=== PATIENT | female | born 1955 | race Two or more races ===

== ENCOUNTER → 2024-06-04 | Outpatient (CLI) | payer OTHER, SELFPAY ==
--- NOTE | 2024-06-04 | XR_ITS ---
Examination: Knee bilateral, 7 views Technique: Knee AP, lateral, oblique each knee, bilateral AP knees single view total 7 views Date and time of exam: January 03, 2024 1425 hours INDICATIONS: Bilateral knee pain beginning 3 months ago. FINDINGS: Prominent osteopenia Right knee moderate narrowing medial joint space mild to moderate osteoarthritis patellofemoral joint Left knee moderate tricompartment osteoarthritis No fracture or dislocation involving either knee IMPRESSION: Moderate narrowing medial joint space right knee Left knee moderate tricompartment osteoarthritis
== END | disposition home or self-care (01) ==
LOC: CDIM 12:12
PROVIDERS: Referring Provider Internal Medicine; Visit Provider Internal Medicine
DX: M17.12 Unilateral primary osteoarthritis, left knee (principal); M25.861 Other specified joint disorders, right knee
CPT/HCPCS: 73564

== ENCOUNTER → 2024-06-28 | Outpatient (CLI) | payer OTHER, SELFPAY ==
[2024-06-28 08:48] LABS: Creatinine MALB Rnd Ur 152 mg/dL (30-125); Microalbumin Creat Ratio 3 mg/gCrea (<30); Microalbumin, Random Urine 4 mg/L (0-300)
[2024-06-28 08:49] LABS: Glucose Estimated Average 180 mg/dL (80-131); Hemoglobin A1C 7.9 % Hgb (4.8-6.0)
[2024-06-28 08:52] LABS: Anion Gap 8 (7-16); BUN/Creatinine Ratio 11 Ratio (12-20); Blood Urea Nitrogen 9 mg/dL (9-23); Calcium 10.1 mg/dL (8.3-10.6); Carbon Dioxide 29.8 mMol/L (20.0-31.0); Chloride 101 mMol/L (98-107); Creatinine (Component) 0.8 mg/dL (0.6-1.3); Glucose 220 mg/dL (74-106); Osmolality,Calculated 283 (275-295); Potassium 4.6 mMol/L (3.4-5.1); Sodium 139 mMol/L (136-145); eGFR > 60 See Note
== END | disposition home or self-care (01) ==
LOC: COPL 07:35
PROVIDERS: PCP Family Medicine; Referring Provider Internal Medicine; Visit Provider Internal Medicine
DX: E11.65 Type 2 diabetes mellitus with hyperglycemia (principal); I10 Essential (primary) hypertension
CPT/HCPCS: 36415; 80048; 82043; 82570; 83036

== ENCOUNTER 2024-09-19 07:54 | Outpatient (AMB) | payer OTHER, SELFPAY ==
[2024-09-19 08:18] VITALS: BP 138/79; PULSE 85; RESP 19; TEMP 36.6; O2SAT 98; BMI 25.6
--- NOTE | 2024-09-19 08:18 | PD.ORTHCLVIS ---
Vital signs 09/19/24 08:18 Height 1.55 m Height Method Measured Weight 61.462 kg Weight Measurement Method Standing Scale BMI 25.6 BP 138/79 H Blood Pressure Source Automatic Cuff Blood Pressure Location Left Upper Arm Position Sitting Respiration 19 Pulse 85 Pulse Source Monitor Temp 97.9 F Temp Source Temporal Artery Scan Pulse Oximetry (%) 98 Oxygen Delivery Method Room Air Med/Allergies Allergies & Medications Allergies No Known Allergies Allergy (Verified 09/19/24 08:19) Medication Reconciliation glipizide 10 mg tablet 10 mg PO BID 08/01/19 [History Confirmed 09/19/24] metformin 1,000 mg tablet 1,000 mg PO BID 08/01/19 [History Confirmed 09/19/24] meloxicam 7.5 mg tablet 7.5 mg PO QDAY #45 tabs 09/19/24 [Rx] Exam Exam Patient is in no acute distress and is cooperative with the examination today. Breathing is nonlabored. Patient has a normal mood and affect. Bilateral extremities were evaluated and demonstrates sensation intact to light touch. Palpable pedal pulses are present. No significant edema is present. Bilateral hips were examined. The patient has no pain with log roll of the hips. Internal rotation to 30 degrees and external rotation to 30 degrees is painless. Negative FADIR. Right knee was examined today. The right knee is in reasonable alignment. Range of motion from 0-120 degrees. Knee is stable to varus and valgus as well as AP translation with <5mm. Patient has a negative McMurrays. There is no pain with patellofemoral compression and no crepitus noted. The knee is nontender to palpation. Left knee was examined today. The left knee is in varus alignment. Range of motion from 0-115 degrees. Knee is stable to varus and valgus as well as AP translation with <5mm. Patient has a negative McMurrays. There is no pain with patellofemoral compression and no crepitus noted. The knee is tender to palpation medially. Bilateral knee x-rays that are nonweightbearing demonstrate mild to moderate joint space narrowing and osteophytes Assessment and Plan Problem List (1) Arthritis of left knee: Status: Acute Plan: Patient is a pleasant 69-year-old female with left knee pain and left knee arthritis. We will get weightbearing x-rays. She would like a left knee cortisone injection today and we will start her on anti-inflammatories. Recommend knee cortisone injection as patient would like to proceed with conservative treatment at this time. The risks and benefits of the procedure were reviewed with the patient and patient gave verbal consent to continue with the procedure. Procedure: performed by Dr. Jefferson Using sterile technique the left knee was thoroughly prepped with alcohol, and approximately 1 cc of Kenalog 40 mg/mL and 4 cc of 1% lidocaine was injected without resistance into the medial tibial femoral joint space. The patient tolerated the procedure. Advanced Care Planning Discussion Advance care planning discussed with:: patient Office Procedures GNS Level of Care Nursing/Assessment Patient Status: Initial/New Patient Nursing Assessment/Reassesment: Medication Reconciliation, Update PMH in EMR and Vital Signs Coordination of Care: Complex Care and Chronic Disease 1-5, Consent,records obtained, informed consent, Education Simp Pt/Fam, 1 Ins Authorization, Lab and Imaging orders, Results/Orders obtained and Staff clarify orders Special Needs: Language special needs New Patient Charge New Patient Point Assignment: [id number] New Patient Point Charge: BULK COOLER INSTALLER Level 4 (5347-9412) Established Patient Charge Established Patient Point Charge: EP Level 3 (80-115) Surgical Proc/IM SQ injection Major Surgical Procedure: Yes (knee injections ) Medication Given Medication Given Medication Given: Yes Documented Dose Given: 4 Route: Infiitration Medication Given Medication Given Medication Given: Yes Documented Dose Given: 1 Route: Infiitration Office Meds Xylocaine 10 mg/mL (1 %) injection solution Performing Provider: Kevin Jefferson MD Performing Location: [facility] Administered by: Kevin Jefferson MD on 09/19/24 08:34 Dose Route Admin Location Dispensed Lot Number Expiration Date [facility] Printed Forms Proofreader 20 mL Infiltration 20 mL [id number] [facility] triamcinolone acetonide 40 mg/mL suspension for injection Performing Provider: Kevin Jefferson MD Performing Location: [facility] Administered by: Kevin Jefferson MD on 09/19/24 08:34 Dose Route Admin Location Dispensed Lot Number Expiration Date [facility] Printed Forms Proofreader 40 mg intra-articular left knee 1 mL [id number] 03/26/26 7360-9364-30 TEVA PARENTERAL MA Intake Visit Data Collection New Patient or Established: New Patient (never been to [facility]) Reason for Visit:: BILATERAL KNEE PAIN Seen by Clinical Staff ONLY (RN/MA): No Instructional Technology Specialist Required: Yes PCP or OBGYN visit in last 3 months: Yes Hx Now: No Do You Feel Safe at Home: Yes Authorities Contacted: N/A Questionairres Past Medical History Past Medical History Have you ever been diagnosed with any of the following: Neurological Problems Seizures: No Head Trauma: Yes Cardiology Problems Myocardial Infarction: Yes Angina: Yes (3 YEARS AGO) Coronary Artery Disease: Yes Atherosclerotic Heart Disease: Yes Hypercholesterolemia: Yes Congestive Heart Failure: No Edema: No Respiratory Problems Chronic Obstructive Pulmonary Disease (COPD): No Asthma: No Smoking: No Smoking Exposure: No Stomache/Intestinal Problems Hepatitis: No Gall Bladder Disease: Yes (gallstones but nosx) Colorectal Cancer: No Genital/Urinary Problems Renal Disease: No Reproductive Problems Breast Cancer: No Previous Pregnancies: No Musculoskeletal Problems Bone Cancer: No Arthritis: Yes Fractures: Yes (PAST RIGHT WRIST FX. CASTED) Head,Eye,Nose,Throat Problems Cataracts: Yes (BILATERAL) Endocrine Problems Diabetes Mellitus Type 1: No Diabetes Mellitus Type 2: Yes Blood Problems Anemia: No Sickle Cell Disease: No Clotting Problems: No Psychologic Problems Depression: Yes (MEDS IN THE PAST) Other Problems Hospitalization: No Shingles: No Falls: No Blood Transfusions: No Anesthesia Reactions: No Organ Transplant: No MRSA: No Chicken Pox: Yes Measles: Yes Mumps: Yes Cancer: No Cervical Cancer: No Lung Cancer: No Ovarian Cancer: No Surgical History Hysterectomy: Yes Pacemaker: No Subjective Visit Visit for: new patient and knee (BILATERAL) Immunization / Flu Flu Vaccine in the Last 12 Months: Yes Flu Vaccine Exclusion Criteria: Already Received History of Present Illness Chief complaint: Left knee pain Randi is a pleasant 69-year-old female with left knee pain has been ongoing for 3 months. The left knee pain is worse than the right. She has not had any injections. She is not on any anti-inflammatories but is taking Tylenol. She reports the pain is affecting her sleep Pain Pain level (0-10): 8 Pain duration: ALL DAY Pain location: inside (medial) and anterior Pain quality: sharp, dull and aching Pain timing: night, increases with activity and stairs Associated signs & symptoms: numbness, weakness and stiffness Ambulatory data Ambulatory device: none Treatments Number of previous injections: 0 Improvement with previous injections: No Number of Physical Therapy sessions: 3 Improvement with PT: No Improvement with NSAIDS: no Review of Systems Review of Systems: All systems negative unless otherwise noted in HPI.
--- NOTE | 2024-09-19 08:27 | XR_ITS ---
Examination: Bilateral AP knees 2 views Right lateral knee left lateral knee 2 views Bilateral axial knees single view TECHNIQUE: Bilateral AP knees standing single view, bilateral PA knees standing single view flexion Standing right lateral knee left lateral knee 2 views Bilateral axial knees single view total 5 views Exam date and time: September 19, 2024 0830 hours INDICATIONS: Bilateral knee pain 2 months. FINDINGS: Moderate osteopenia Severe narrowing lateral joint space left knee Moderate narrowing medial joint space right knee Moderate narrowing medial joint space left knee Moderate to advanced osteoarthritis patellofemoral joints No fractures IMPRESSION: Significant osteoarthritis as above, including severe narrowing lateral joint space left knee
== END 2024-09-19 08:37 | disposition home or self-care (01) ==
PROVIDERS: PCP Family Medicine; Referring Provider Family Medicine; Supervising Provider Orthopaedic Surgery Adult Reconstructive Orthopaedic Surgery; Visit Provider Orthopaedic Surgery Adult Reconstructive Orthopaedic Surgery
DX: M17.12 Unilateral primary osteoarthritis, left knee (principal); M25.562 Pain in left knee
CPT/HCPCS: 20610; 73564; 99204; 99213; J3301; J3490; G0463

== ENCOUNTER → 2024-09-20 | Outpatient (CLI) | payer OTHER, SELFPAY ==
[2024-09-20 08:45] LABS: Basophils % (Auto) 0 % (0-2.5); Eosinophils % (Auto) 0 % (0-10); Hematocrit 40.1 % (36.0-46.0); Hemoglobin 13.4 g/dL (12.0-16.0); Immature Granulocytes % (Auto) 1 % (0-0); Immature Granulocytes Auto 0.07 Thou/mm3 (0.00-0.00); Lymphocytes % (Auto) 23 % (10-50); Mean Corpuscular HGB Conc 33.4 g/dl (31.0-37.0); Mean Corpuscular Volume 87 fL (80-100); Monocytes # (Auto) 0.5 Thou/mm3 (0.0-0.8); Monocytes % (Auto) 5 % (0-12); Neutrophils # (Auto) 6.3 Thou/mm3 (1.8-7.7); Neutrophils % (Auto) 71 % (37-80); Nucleated Red Blood Cell % 0 /100 WBC (0); Platelet Count 326 Thou/mm3 (140-440); RDW Standard Deviation 41.2 fL (36.4-46.3); Red Blood Count 4.62 Miln/mm3 (4.00-5.20); White Blood Count 8.9 Thou/mm3 (3.6-11.0)
[2024-09-20 08:51] LABS: Glucose Estimated Average 183 mg/dL (80-131)
[2024-09-20 08:56] LABS: Creatinine MALB Rnd Ur 101 mg/dL (30-125); Microalbumin Creat Ratio 5 mg/gCrea (<30); Microalbumin, Random Urine 5 mg/L (0-300)
[2024-09-20 09:12] LABS: Alanine Aminotransferase 16 U/L (10-49); Albumin, Serum 4.7 gm/dL (3.4-4.8); Albumin/Globulin Ratio 1.6 (1.2-2.2); Alkaline Phosphatase 117 U/L (46-116); Anion Gap 11 (7-16); Aspartate Amino Transferase 17 U/L (0-34); BUN/Creatinine Ratio 15 Ratio (12-20); Bilirubin,Total 0.5 mg/dL (0.3-1.2); Blood Urea Nitrogen 12 mg/dL (9-23); Calcium 10.1 mg/dL (8.3-10.6); Calcium (Corrected) 10.1 mg/dL (8.5-10.1); Carbon Dioxide 26.5 mMol/L (20.0-31.0); Cardiac Risk Estimate 5.5 RATIO (3.7-5.6); Chloride 102 mMol/L (98-107); Cholesterol 220 mg/dL (132-200); Creatinine (Component) 0.8 mg/dL (0.6-1.3); Glucose 123 mg/dL (74-106); HDL Cholesterol 40 mg/dL (40-60); LDL Cholesterol,Calculated 150 mg/dL (0-130); Osmolality,Calculated 278 (275-295); Potassium 4.6 mMol/L (3.4-5.1); Sodium 139 mMol/L (136-145); Total Protein 7.7 gm/dL (5.7-8.2); Triglycerides 150 mg/dL (30-150); eGFR > 60 See Note
== END | disposition home or self-care (01) ==
PROVIDERS: PCP Internal Medicine; Referring Provider Internal Medicine; Visit Provider Internal Medicine
DX: E11.65 Type 2 diabetes mellitus with hyperglycemia (principal); I10 Essential (primary) hypertension
CPT/HCPCS: 36415; 80053; 80061; 82043; 82570; 83036; 85025

== ENCOUNTER 2024-10-17 09:09 | Outpatient (AMB) | payer OTHER, SELFPAY ==
--- NOTE | 2024-10-17 09:44 | PD.ORTHCLVIS ---
Med/Allergies Allergies & Medications Allergies No Known Allergies Allergy (Verified 09/19/24 08:19) Exam Exam Patient is in no acute distress and is cooperative with the examination today. Breathing is nonlabored. Patient has a normal mood and affect. Bilateral extremities were evaluated and demonstrates sensation intact to light touch. Palpable pedal pulses are present. No significant edema is present. Bilateral hips were examined. The patient has no pain with log roll of the hips. Internal rotation to 30 degrees and external rotation to 30 degrees is painless. Negative FADIR. Right knee was examined today. The right knee is in reasonable alignment. Range of motion from 0-120 degrees. Knee is stable to varus and valgus as well as AP translation with <5mm. Patient has a negative McMurrays. There is no pain with patellofemoral compression and no crepitus noted. The knee is nontender to palpation. Left knee was examined today. The left knee is in varus alignment. Range of motion from 0-115 degrees. Knee is stable to varus and valgus as well as AP translation with <5mm. Patient has a negative McMurrays. There is no pain with patellofemoral compression and no crepitus noted. The knee is tender to palpation medially. Weight bearing xrays demonstrates advanced joint space narrowing of the left with valgus arthritis and complete obliteration of the lateral joint space. There is mild arthritis of the left in comparison. Assessment and Plan Problem List (1) Arthritis of left knee: Status: Acute Plan: Patient is a pleasant 69-year-old female with left knee pain and left knee arthritis. She has failed conservative treatment occluding cortisone injection, anti-inflammatories, and formal physical therapy. We does consider total knee replacement of his walker for the left. She would have to wait 3 months from the cortisone injection in order to get surgery. The nature and purpose of the total knee replacement, alternative method(s) of treatment, the material risks involved, and the possibility of complications were fully explained to the patient. The patient does NOT have any of the following contraindications to TKA: - Active infection of the knee joint, OR - Active systemic bacteremia, OR - Active skin infection or open wound at surgical site, OR - Neuropathic arthritis, OR - Severe, rapidly progressive neurological disease, OR - Severe medical condition that makes risks of surgery outweigh the potential benefit The patient was told the most common risks and complications associated with a total knee replacement include, but are not limited to: blood clots in the leg, fatal pulmonary embolism, dislocation of the prosthesis, intraoperative and postoperative fractures of the femur or tibia, infection, failure of the prosthesis or grafting materials, complications from anesthesia, reactions to blood transfusions, postoperative leg length inequality, instability of the knee replacement, nerve damage or injury, vascular injury, delayed wound healing, infection, other injury or even . In addition, there are risks associated with anesthesia given during this operation. Also, the patient was told that after undergoing a total knee replacement there may still be persistent pain or disability. The patient was informed that the success of this operation in part depends upon the mechanical devices which are going to be implanted and that these devices can fail or malfunction, and may need to be repaired or replaced and there are no guarantees as to the longevity of this device or its parts and that it or its parts could fail prematurely. The patient was also notified that during the course of surgery, there may be a need to use bone graft from donors, and that any bone graft used will be carefully screened for communicable diseases, including AIDS, hepatitis, Ismael-Creutzfeldt, or other diseases, but despite the screening procedures, there is a small chance that they could contract one of these diseases. Finally, the patient was asked to follow completely and fully with all advice and recommended treatments, and that recovery and ultimate outcome are affected by their compliance with recommended treatment. We discussed the risks, benefits and treatment alternatives, and the patient is interested in proceeding with surgery. We will try to set this up as expeditiously as possible. Advanced Care Planning Discussion Advance care planning discussed with:: patient MA Intake Visit Data Collection New Patient or Established: New Patient (never been to [facility]) Reason for Visit:: BILATERAL KNEE PAIN Seen by Clinical Staff ONLY (RN/MA): No Plastic Injection Mold Maker Required: Yes PCP or OBGYN visit in last 3 months: Yes Hx Now: No Do You Feel Safe at Home: Yes Authorities Contacted: N/A Questionairres Past Medical History Past Medical History Have you ever been diagnosed with any of the following: Neurological Problems Seizures: No Head Trauma: Yes Cardiology Problems Myocardial Infarction: Yes Angina: Yes (3 YEARS AGO) Coronary Artery Disease: Yes Atherosclerotic Heart Disease: Yes Hypercholesterolemia: Yes Congestive Heart Failure: No Edema: No Respiratory Problems Chronic Obstructive Pulmonary Disease (COPD): No Asthma: No Smoking: No Smoking Exposure: No Stomache/Intestinal Problems Hepatitis: No Gall Bladder Disease: Yes (gallstones but nosx) Colorectal Cancer: No Genital/Urinary Problems Renal Disease: No Reproductive Problems Breast Cancer: No Previous Pregnancies: No Musculoskeletal Problems Bone Cancer: No Arthritis: Yes Fractures: Yes (PAST RIGHT WRIST FX. CASTED) Head,Eye,Nose,Throat Problems Cataracts: Yes (BILATERAL) Endocrine Problems Diabetes Mellitus Type 1: No Diabetes Mellitus Type 2: Yes Blood Problems Anemia: No Sickle Cell Disease: No Clotting Problems: No Psychologic Problems Depression: Yes (MEDS IN THE PAST) Other Problems Hospitalization: No Shingles: No Falls: No Blood Transfusions: No Anesthesia Reactions: No Organ Transplant: No MRSA: No Chicken Pox: Yes Measles: Yes Mumps: Yes Cancer: No Cervical Cancer: No Lung Cancer: No Ovarian Cancer: No Surgical History Hysterectomy: Yes Pacemaker: No Subjective Visit Visit for: new patient and knee (BILATERAL) Immunization / Flu Flu Vaccine in the Last 12 Months: Yes Flu Vaccine Exclusion Criteria: Already Received History of Present Illness Chief complaint: Left knee pain Randi is a pleasant 69-year-old female with left knee pain has been ongoing for 3 months. The left knee pain is worse than the right. She has tried meloxicanm and Tylenol. She reports the pain is affecting her sleep. She had injection one month ago and only received one week of relief. She has tried formal physical therapy for several months as well. Pain Pain level (0-10): 8 Pain duration: ALL DAY Pain location: inside (medial) and anterior Pain quality: sharp, dull and aching Pain timing: night, increases with activity and stairs Associated signs & symptoms: numbness, weakness and stiffness Ambulatory data Ambulatory device: none Treatments Number of previous injections: 0 Improvement with previous injections: No Number of Physical Therapy sessions: 3 Improvement with PT: No Improvement with NSAIDS: no Review of Systems Review of Systems: All systems negative unless otherwise noted in HPI.
[2024-10-17 09:50] VITALS: BP 149/72; PULSE 76; RESP 18; TEMP 36.6; O2SAT 98; BMI 25.0
--- NOTE | 2024-10-17 09:50 | PD.ORTHCLVIS ---
Vital signs 10/17/24 09:50 Height 1.55 m Height Method Stated Weight 60.044 kg Weight Measurement Method Standing Scale BMI 25.0 BP 149/72 H Blood Pressure Source Automatic Cuff Blood Pressure Location Right Upper Arm Position Sitting Respiration 18 Pulse 76 Pulse Source Monitor Temp 97.9 F Temp Source Temporal Artery Scan Pulse Oximetry (%) 98 Oxygen Delivery Method Room Air Med/Allergies Allergies & Medications Allergies No Known Allergies Allergy (Verified 10/17/24 09:51) Medication Reconciliation glipizide 10 mg tablet 10 mg PO BID 08/01/19 [History Confirmed 10/17/24] metformin 1,000 mg tablet 1,000 mg PO BID 08/01/19 [History Confirmed 10/17/24] meloxicam 7.5 mg tablet 7.5 mg PO QDAY #45 tabs 09/19/24 [Rx Confirmed 10/17/24] Assessment and Plan Problem List (1) Arthritis of left knee: Status: Acute Advanced Care Planning Discussion Advance care planning discussed with:: patient Office Procedures GNS Level of Care Nursing/Assessment Patient Status: Established Patient Nursing Assessment/Reassesment: Medication Reconciliation, Update PMH in EMR and Vital Signs Coordination of Care: Complex Care and Chronic Disease 1-5, Education Complex Pt/Fam, Consent,records obtained, informed consent, 2-3 Insurance Autorizations needed, Lab and Imaging orders, Results/Orders obtained and Staff clarify orders Special Needs: Language special needs Established Patient Charge Established Patient Point Assignment: 130 Established Patient Point Charge: EP Level 4 (120-155) MA Intake Visit Data Collection New Patient or Established: Established Patient (seen at [facility] within 3 years) Reason for Visit:: F/U XRAYS Seen by Clinical Staff ONLY (RN/MA): No Verbal consent obtained for Telemed visit?: No Production Control Expediter Required: Yes PCP or OBGYN visit in last 3 months: Yes Hx Now: No Do You Feel Safe at Home: Yes Authorities Contacted: N/A Questionairres Past Medical History Past Medical History Have you ever been diagnosed with any of the following: Neurological Problems Seizures: No Head Trauma: Yes Cardiology Problems Myocardial Infarction: Yes Angina: Yes (3 YEARS AGO) Coronary Artery Disease: Yes Atherosclerotic Heart Disease: Yes Hypercholesterolemia: Yes Congestive Heart Failure: No Edema: No Respiratory Problems Chronic Obstructive Pulmonary Disease (COPD): No Asthma: No Smoking: No Smoking Exposure: No Stomache/Intestinal Problems Hepatitis: No Gall Bladder Disease: Yes (gallstones but nosx) Colorectal Cancer: No Genital/Urinary Problems Renal Disease: No Reproductive Problems Breast Cancer: No Previous Pregnancies: No Musculoskeletal Problems Bone Cancer: No Arthritis: Yes Fractures: Yes (PAST RIGHT WRIST FX. CASTED) Head,Eye,Nose,Throat Problems Cataracts: Yes (BILATERAL) Endocrine Problems Diabetes Mellitus Type 1: No Diabetes Mellitus Type 2: Yes Blood Problems Anemia: No Sickle Cell Disease: No Clotting Problems: No Psychologic Problems Depression: Yes (MEDS IN THE PAST) Other Problems Hospitalization: No Shingles: No Falls: No Blood Transfusions: No Anesthesia Reactions: No Organ Transplant: No MRSA: No Chicken Pox: Yes Measles: Yes Mumps: Yes Cancer: No Cervical Cancer: No Lung Cancer: No Ovarian Cancer: No Surgical History Hysterectomy: Yes Pacemaker: No Subjective Visit Visit for: follow up visit, knee and x-rays Immunization / Flu Flu Vaccine in the Last 12 Months: Yes Flu Vaccine Exclusion Criteria: No Exclusion Criteria History of Present Illness Chief complaint: F/U XRAYS Randi is a pleasant 69-year-old female with left knee pain has been ongoing for 3 months. The left knee pain is worse than the right. She has tried meloxicanm and Tylenol. She reports the pain is affecting her sleep. She had injection one month ago and only received one week of relief. She has tried formal physical therapy for several months as well. Personal History Occupation: RETIRED Red flag PMH: BMI and other (specify) (DIABETIC ) BMI Counceling provided: Yes Pain Pain level (0-10): 8 Pain duration: ALL DAY Pain location: inside (medial), outside (lateral) and anterior Pain quality: sharp, dull and aching Pain timing: increases with activity Associated signs & symptoms: stiffness Ambulatory data Ambulatory device: none Treatments Improvement with previous injections: No Improvement with PT: No Improvement with NSAIDS: no Review of Systems Review of Systems: All systems negative unless otherwise noted in HPI.
== END 2024-10-17 09:52 | disposition home or self-care (01) ==
LOC: HODSRG 09:09
PROVIDERS: PCP Family Medicine; Referring Provider Family Medicine; Supervising Provider Orthopaedic Surgery Adult Reconstructive Orthopaedic Surgery; Visit Provider Orthopaedic Surgery Adult Reconstructive Orthopaedic Surgery
DX: M17.12 Unilateral primary osteoarthritis, left knee (principal); M25.562 Pain in left knee; E78.00 Pure hypercholesterolemia, unspecified; E11.9 Type 2 diabetes mellitus without complications; I25.10 Atherosclerotic heart disease of native coronary artery without angina pectoris; I25.2 Old myocardial infarction
CPT/HCPCS: 99214; G0463

== ENCOUNTER → 2024-10-25 | Outpatient (CLI) | payer OTHER, SELFPAY ==
--- NOTE | 2024-10-25 08:15 | XR_ITS ---
Examination: Screening digital mammography, bilateral Computer aided detection 3-D breast Tomosynthesis, bilateral Date and time of exam: October 25, 2024 0757 hours Compared to mammograms dating to September 18, 2015 Indication: Screening Technique: Nonmagnified MLO, CC views of the breasts to been obtained, reconstructed from 3-D Tomosynthesis images. R2 computer aided detection program utilized for evaluation of suspicious masses and/or abnormal calcifications. 3-D Tomosynthesis images obtained. Findings: Scattered areas of fibroglandular density. Benign calcifications. No interval suspicious masses Impression: BI-RADS category II: Benign Findings. Recommend 1 year follow-up mammogram.
== END | disposition home or self-care (01) ==
LOC: CDIM 07:46
PROVIDERS: Referring Provider Internal Medicine; Visit Provider Internal Medicine
DX: Z12.31 Encounter for screening mammogram for malignant neoplasm of breast (principal); R92.323 Mammographic fibroglandular density, bilateral breasts; R92.1 Mammographic calcification found on diagnostic imaging of breast
CPT/HCPCS: 77063; 77067

== ENCOUNTER → 2025-03-25 | Outpatient (CLI) | payer OTHER, SELFPAY ==
[2025-03-25 09:07] LABS: Basophils # (Auto) 0.1 Thou/mm3 (0.0-0.2); Basophils % (Auto) 1 % (0-2.5); Eosinophils # (Auto) 0.1 Thou/mm3 (0.0-0.5); Eosinophils % (Auto) 2 % (0-10); Hematocrit 40.6 % (36.0-46.0); Hemoglobin 13.0 g/dL (12.0-16.0); Immature Granulocytes Auto 0.01 Thou/mm3 (0.00-0.00); Lymphocytes # (Auto) 2.2 Thou/mm3 (1.0-4.8); Lymphocytes % (Auto) 35 % (10-50); Mean Corpuscular HGB Conc 32.0 g/dl (31.0-37.0); Mean Corpuscular Hemoglobin 28.8 pg (25.0-35.0); Mean Corpuscular Volume 90 fL (80-100); Monocytes # (Auto) 0.4 Thou/mm3 (0.0-0.8); Monocytes % (Auto) 6 % (0-12); Neutrophils # (Auto) 3.4 Thou/mm3 (1.8-7.7); Neutrophils % (Auto) 56 % (37-80); Nucleated Red Blood Cell # 0.00 Thou/mm3 (0.00-0.00); Nucleated Red Blood Cell % 0 /100 WBC (0); Platelet Count 285 Thou/mm3 (140-440); RDW Standard Deviation 44.7 fL (36.4-46.3); Red Blood Count 4.51 Miln/mm3 (4.00-5.20); White Blood Count 6.1 Thou/mm3 (3.6-11.0)
[2025-03-25 09:15] LABS: Glucose Estimated Average 192 mg/dL (80-131); Hemoglobin A1C 8.3 % Hgb (4.8-6.0)
[2025-03-25 09:47] LABS: Alanine Aminotransferase 12 U/L (10-49); Albumin, Serum 4.6 gm/dL (3.4-4.8); Albumin/Globulin Ratio 1.6 (1.2-2.2); Anion Gap 10 (7-16); Aspartate Amino Transferase 18 U/L (0-34); BUN/Creatinine Ratio 11 Ratio (12-20); Bilirubin,Total 0.4 mg/dL (0.3-1.2); Blood Urea Nitrogen 10 mg/dL (9-23); Calcium 10.3 mg/dL (8.3-10.6); Calcium (Corrected) 10.3 mg/dL (8.5-10.1); Carbon Dioxide 27.6 mMol/L (20.0-31.0); Cardiac Risk Estimate 6.7 RATIO (3.7-5.6); Chloride 103 mMol/L (98-107); Cholesterol 253 mg/dL (132-200); Creatinine (Component) 0.9 mg/dL (0.6-1.3); Globulin 2.9 gm/dL (2.3-3.5); Glucose 155 mg/dL (74-106); HDL Cholesterol 38 mg/dL (40-60); LDL Cholesterol,Calculated 183 mg/dL (0-130); Osmolality,Calculated 283 (275-295); Potassium 5.3 mMol/L (3.4-5.1); Sodium 141 mMol/L (136-145); Total Protein 7.5 gm/dL (5.7-8.2); Triglycerides 162 mg/dL (30-150); eGFR > 60 See Note
[2025-03-25 10:06] LABS: Creatinine MALB Rnd Ur 95 mg/dL (30-125); Microalbumin, Random Urine < 3 mg/L (0-300)
[2025-03-25 10:29] LABS: Alkaline Phosphatase 109 U/L (46-116)
== END | disposition home or self-care (01) ==
LOC: COPL 06:37
PROVIDERS: PCP Internal Medicine; Referring Provider Internal Medicine; Visit Provider Internal Medicine
DX: E11.65 Type 2 diabetes mellitus with hyperglycemia (principal)
CPT/HCPCS: 36415; 80053; 80061; 82043; 82570; 83036; 85025

== ENCOUNTER → 2025-04-01 | Outpatient (CLI) | payer OTHER, SELFPAY ==
--- NOTE | 2025-04-01 12:00 | XR_ITS ---
Examination: Bone densitometry Date and time of exam: April 01, 2025, 1318 hours INDICATIONS: Menopause age 49 vitamin D 3 months, personal history osteopenia. Technique: Lumbar spine and hip total bone mineralization values of an calculated. Peak reference and age match control results have been displayed. Findings: Lumbar spine total bone mineralization is 0.760 gm/cm2. This is 2.6 standard deviations below peak reference. This is 0.4 standard deviations below age-matched controls. Hip total bone mineralization is 0.798 gm/cm2 This is 1.2 standard deviations below peak reference. This is 0.3 standard deviations above age-matched controls Impression: There is osteoporosis based on lumbar spine measurements. There is osteopenia based on hip measurements Lumbar mineralization is decreased 5.0% compared with March 30, 2023. Hip mineralization is decreased 4.1% compared with March 30, 2023.
== END | disposition home or self-care (01) ==
PROVIDERS: PCP Internal Medicine; Referring Provider Internal Medicine; Visit Provider Internal Medicine
DX: M81.0 Age-related osteoporosis without current pathological fracture (principal); M85.89 Other specified disorders of bone density and structure, multiple sites
CPT/HCPCS: 77080

== ENCOUNTER → 2025-05-14 | Outpatient (CLI) | payer OTHER, SELFPAY ==
--- NOTE | 2025-05-14 07:53 | XR_ITS ---
Examination: Abdomen sonogram, complete Date and time of exam: May 14, 2025, 0756 hours INDICATIONS: Upper abdominal pain nausea vomiting diarrhea beginning 1 week ago. Technique: Multiple real-time grayscale transabdominal sonographic images of the abdomen have been obtained. Findings: Normal gallbladder Normal common bile duct 0.3 cm Pancreatic head 1.9 cm Aorta not enlarged Liver 13.9 cm fatty infiltration no focal liver lesions Normal hepatopetal portal venous flow Patent IVC Right kidney 10.1 cm renal cortex 1.2 cm Left kidney 10.6 cm renal cortex 1.4 cm Mild renal scar formation Spleen 7.2 cm IMPRESSION: Normal gallbladder Normal common bile duct Liver normal size fatty infiltration no focal liver lesions
[2025-05-14 09:22] LABS: Basophils # (Auto) 0.1 Thou/mm3 (0.0-0.2); Basophils % (Auto) 1 % (0-2.5); Eosinophils # (Auto) 0.1 Thou/mm3 (0.0-0.5); Eosinophils % (Auto) 1 % (0-10); Hematocrit 39.4 % (36.0-46.0); Hemoglobin 12.9 g/dL (12.0-16.0); Immature Granulocytes Auto 0.01 Thou/mm3 (0.00-0.00); Lymphocytes # (Auto) 1.6 Thou/mm3 (1.0-4.8); Lymphocytes % (Auto) 28 % (10-50); Mean Corpuscular HGB Conc 32.7 g/dl (31.0-37.0); Mean Corpuscular Hemoglobin 28.5 pg (25.0-35.0); Mean Corpuscular Volume 87 fL (80-100); Monocytes # (Auto) 0.4 Thou/mm3 (0.0-0.8); Monocytes % (Auto) 6 % (0-12); Neutrophils # (Auto) 3.8 Thou/mm3 (1.8-7.7); Neutrophils % (Auto) 64 % (37-80); Nucleated Red Blood Cell # 0.00 Thou/mm3 (0.00-0.00); Nucleated Red Blood Cell % 0 /100 WBC (0); Platelet Count 295 Thou/mm3 (140-440); RDW Standard Deviation 43.9 fL (36.4-46.3); Red Blood Count 4.52 Miln/mm3 (4.00-5.20); White Blood Count 5.9 Thou/mm3 (3.6-11.0)
[2025-05-14 09:48] LABS: Alanine Aminotransferase 13 U/L (10-49); Albumin, Serum 4.8 gm/dL (3.4-4.8); Albumin/Globulin Ratio 2.0 (1.2-2.2); Alkaline Phosphatase 84 U/L (46-116); Amylase 86 U/L (30-118); Anion Gap 10 (7-16); Aspartate Amino Transferase 22 U/L (0-34); BUN/Creatinine Ratio 10 Ratio (12-20); Bilirubin,Total 0.5 mg/dL (0.3-1.2); Blood Urea Nitrogen 8 mg/dL (9-23); Calcium 9.2 mg/dL (8.3-10.6); Calcium (Corrected) 9.2 mg/dL (8.5-10.1); Carbon Dioxide 27.8 mMol/L (20.0-31.0); Chloride 105 mMol/L (98-107); Creatinine (Component) 0.8 mg/dL (0.6-1.3); Globulin 2.4 gm/dL (2.3-3.5); Glucose 135 mg/dL (74-106); Lipase 60 U/L (12-53); Osmolality,Calculated 285 (275-295); Potassium 4.1 mMol/L (3.4-5.1); Sodium 143 mMol/L (136-145); Total Protein 7.2 gm/dL (5.7-8.2); eGFR > 60 See Note
[2025-05-19 06:55] LABS: Gamma Glutamyl Transpeptidase* 9 U/L (3-65)
== END | disposition home or self-care (01) ==
LOC: CDIM 06:59 → COPL 08:10
PROVIDERS: PCP Internal Medicine; Referring Provider Student in an Organized Health Care Education/Training Program; Visit Provider Radiology Diagnostic Radiology
DX: K76.0 Fatty (change of) liver, not elsewhere classified (principal); R10.9 Unspecified abdominal pain
CPT/HCPCS: 36415; 76700; 80053; 82150; 82977; 83690; 85025